=== PATIENT | female | born 1950 | race Caucasian/White ===

== ENCOUNTER 2017-06-21 22:43 | Emergency (ER) | payer OTHER ==
[2017-06-21 22:50] VITALS: PULSE 73; TEMP 97.5; BMI 22.3
--- NOTE | 2017-06-21 23:18 | PDOC ---
History of Present Illness <Tamy Lugo - Last Filed: 06/22/17 06:53> - History of Present Illness Initial Comments: 06/21/17 23:56 The patient is a 66 year old female with a history of breast ca who presents for evaluation following a syncopal episode. The patient reports that she was at a dinner constitution party this evening and had two beers throughout the night. She states that she began feeling "tingly" and sat down. She then felt very hot and "passed out". She denies any chest pain or palpitations prior to the episode and states she had a previous episode several years ago that was worked up and negative. She denies fevers, chills, SOB, chest pain, abdominal pain, or changes with urination or bowel movements. <Neftali Antony - Last Filed: 06/22/17 07:02> - General Chief Complaint: Lightheaded Stated Complaint: NEAR/SYNCOPE Time Seen by Provider: 06/21/17 23:17 Past History <Tamy Lugo - Last Filed: 06/22/17 06:53> - Past Medical History Cancer: Yes (breast 13 years ago) - Surgical History Cholecystectomy: Yes - Suicide/Smoking/Psychosocial Hx Smoking History: Never smoked <Neftali Antony - Last Filed: 06/22/17 07:02> - Past Medical History Allergies/Adverse Reactions: Allergies Allergy/AdvReac Type Severity Reaction Status Date / Time Sulfa (Sulfonamide AdvReac Verified 06/21/17 22:50 Antibiotics) Review of Systems - Review of Systems Comments:: 06/21/17 23:59 Constitutional: No fevers, chills, fatigue, malaise HEENT: No Rhinorrhea, nasal congestion, visual changes Cardiovascular: Syncope. No chest pain, palpitations, lightheadedness Respiratory: No Cough, SOB, Hemoptysis, Gastrointestinal: No Abdominal pain, Nausea, Vomiting, Constipation, Diarrhea, Melena Genitourinary: No Dysuria, Frequency, Urgency, Hesitancy, Hematuria, Flank pain Musculoskeletal: No Myalgia, arthralgia Skin: No rashes, itching, bruising, pallor Neurologic: No Headache, Dizziness, Numbness, Weakness, or Tingling <Neftali Antony - Last Filed: 06/22/17 07:02> *Physical Exam - Vital Signs Last Vital Signs Temp Pulse Resp BP Pulse Ox 97.5 F L 73 18 135/70 100 06/21/17 22:46 06/21/17 22:46 06/21/17 22:46 06/21/17 22:46 06/21/17 22:46 <Tamy Lugo - Last Filed: 06/22/17 06:53> - Vital Signs Last Vital Signs Temp Pulse Resp BP Pulse Ox 97.5 F L 73 18 135/70 100 06/21/17 22:46 06/21/17 22:46 06/21/17 22:46 06/21/17 22:46 06/21/17 22:46 - Physical Exam Comments: 06/21/17 23:59 General Appearance: Nourished. No Apparent Distress HEENT: EOMI, JORGE A. No Pharyngeal Erythema, Tonsillar Exudate, Tonsillar Erythema Neck: No Cervical Lymphadenopathy Respiratory/Chest: Lungs Clear, Normal Breath Sounds. No Crackles, Rales, Rhonchi, Wheezing Cardiovascular: Regular Rhythm, Regular Rate. No Murmur, Gallops, Rubs Gastrointestinal/Abdominal: Normal Bowel Sounds, Soft. No Guarding, Rebound, Tenderness Musculoskeletal: No CVA Tenderness Extremity: Normal Capillary Refill Integumentary: Normal Color, Dry, Warm Neurologic: commissioning engineer II-XII NML intact, Fully Oriented, Alert, Normal Mood/Affect, Normal Response, <Neftali Antony - Last Filed: 06/22/17 07:02> ED Treatment Course - LABORATORY CBC & Chemistry Diagram: 06/22/17 00:25 06/22/17 00:25 - ADDITIONAL ORDERS Additional order review: Laboratory Results 06/22/17 06/22/17 00:25 00:25 Sodium 140 Potassium 3.9 Chloride 104 Carbon Dioxide 27 Anion Gap 9 BUN 26 H Creatinine 0.9 Creat Clearance w eGFR > 60 Random Glucose 149 H Calcium 8.5 Total Bilirubin 0.3 AST 16 ALT 25 Alkaline Phosphatase 107 Creatine Kinase 49 Troponin I < 0.02 Total Protein 6.5 Albumin 3.8 Alcohol, Quantitative < 5.0 06/22/17 00:25 RBC 5.31 H MCV 61.8 L MCHC 31.8 L RDW 15.8 H MPV 8.6 Neutrophils % 76.2 Lymphocytes % 17.7 Monocytes % 4.5 Eosinophils % 0.9 Basophils % 0.7 - Medications Given in the ED: ED Medications Discontinued Medications Generic Name Dose Route Start Last Admin Trade Name Lino PRN Reason Stop Dose Admin Sodium Chloride 500 mls @ 500 mls/hr 06/21/17 23:51 06/22/17 00:28 Normal Saline - IV 06/22/17 00:50 500 mls/hr ASDIR STA Administration <Tamy Lugo - Last Filed: 06/22/17 06:53> - LABORATORY CBC & Chemistry Diagram: 06/22/17 00:25 06/22/17 00:25 <Neftali Antony - Last Filed: 06/22/17 07:02> Medical Decision Making - Medical Decision Making 06/22/17 00:02 The patient is a 66 year old female with a history of breast ca who presents for evaluation following a syncopal episode. Differential includes but is not limited to: Vaso-vagal, acs, arrhythmia, intoxication, metabolic derangement. Given the patient's normal clinical exam and resolution of symptoms here in the ED as well as her history, it is likely her syncopal episode was due to a vaso- vagal episode. However given her age, we will obtain a ekg, cbc, cmp, and troponin to evaluate for any arrhythmia or acs. We will continue to monitor and reassess. 06/22/17 01:51 cbc, cmp are unremarkable. Initial troponin is negative. EKG demonstrates q waves in leads v1-v3 and a shortened KS interval. Prior EKG is unavailable. Given her history of syncope and ekg changes, we will initiate ED observation for a second troponin. We discussed the the hospitalist team who took sign out. 06/22/17 06:54 Patient's second troponin is negative and chest plain film is unremarkable as preliminarily read by the ED physician as negative pending official read. We are comfortable discharging the patient home at this time with PCP follow up. We discussed the results and the plan with the patient and she voiced understanding and is agreeable with the plan. <Neftali Antony - Last Filed: 06/22/17 07:02> *DC/Admit/Observation/Transfer - Discharge Dispostion Admit: No <Tamy Lugo - Last Filed: 06/22/17 06:53> - Discharge Dispostion Admit: No <Neftali Antony - Last Filed: 06/22/17 07:02> Diagnosis at time of Disposition: Near syncope Syncope Qualifiers: Syncope type: unspecified Qualified Code(s): R55 - Syncope and collapse - Discharge Dispostion Disposition: HOME Condition at time of disposition: Improved - Referrals
[2017-06-21] MEDS ORDERED: SODIUM CHLORIDE 500 ML IV STA (23:51)
[2017-06-22 00:31] LABS: BASOPHIL 0.7 % (0-2.0); EOSINOPHIL 0.9 % (0-4.5); MCHC 31.8 g/dl (32.0-36.0); MEAN CELL VOLUME 61.8 fl (80-96); MEAN PLT VOLUME 8.6 fl (7.5-11.1); NEUTROPHILS 76.2 % (42.8-82.8); PLATELET COUNT 196 K/MM3 (134-434); RDW 15.8 % (11.6-15.6)
[2017-06-22 00:32] LABS: MCH 19.7 pg (25.7-33.7)
[2017-06-22 00:54] LABS: ALBUMIN 3.8 g/dl (3.4-5.0); ANION GAP 9 (8-16); BILIRUBIN,TOTAL 0.3 mg/dL (0.2-1.0); CALCIUM 8.5 mg/dL (8.5-10.1); CO2 27 mmol/L (21-32); CREATININE 0.9 mg/dL (0.55-1.02); GLUCOSE,RANDOM 149 mg/dL (74-106); SGOT/AST 16 U/L (15-37); SGPT/ALT 25 U/L (12-78); TOT PROT 6.5 g/dl (6.4-8.2)
[2017-06-22 00:57] LABS: ALK PHOS 107 U/L (45-117); CPK 49 IU/L (26-192); TROPONIN I < 0.02 ng/ml (0.00-0.05)
--- NOTE | 2017-06-22 01:09 | PDOC ---
Attending Attestation - Resident Resident Name: Neftali Antony - HPI HPI: 06/22/17 01:08 Pt comes with a syncopal episode at a [employer] that she was attending. Pt had 2 small alcoholic drinks and her alcohol level is zero in the ER. Pt lives in [facility] and she has never been ion out ER> In the ER, EKG shows short WA interval and septal anterior Q waves which may be relatively new. - Physicial Exam PE: 06/22/17 03:54 Pt has normal exam. I agree with the resident exam. Neuro exam is normal. - Medical Decision Making 06/22/17 03:55 Pt will have serial cardiac enzymes. If 2 enzymes are normal pt will be discharged home. EKG demonstrates Q waves. Pt 's CXR is pending Alcohol level is zero.
[2017-06-22 01:33] LABS: ANISOCYTOSIS 2+; HYPOCHROMIA 3+; MICROCYTOSIS 2+; PLATELET ESTIMATE ADEQUATE (NORMAL)
[2017-06-22 06:51] LABS: CPK 44 IU/L (26-192); TROPONIN I < 0.02 ng/ml (0.00-0.05)
[2017-06-22 07:03] VITALS: BP 140/60
--- NOTE | 2017-06-22 13:03 | EKG ---
Test Reason : Blood Pressure : / mmHG Vent. Rate : 086 BPM Atrial Rate : 089 BPM P-R Int : 108 ms QRS Dur : 080 ms QT Int : 388 ms P-R-T Axes : 042 038 055 degrees QTc Int : 464 ms SINUS RHYTHM WITH SINUS ARRHYTHMIA WITH SHORT MN POOR R WAVE PROGRESSION ABNORMAL ECG NO PREVIOUS ECGS AVAILABLE BASELINE ARTIFACT Confirmed by COURTNEY LAURA MD ([id number]) on 06/22/2017 1:03:28 PM Referred By: Confirmed By:COURTNEY LAURA MD
== END 2017-06-22 07:07 | disposition home or self-care (01) ==
LOC: JER 22:43 → JERBED 06-22 01:49 → UNDOADMOB 06-22 01:49 → JERBED 06-22 01:54 → JER 06-22 07:07
PROC: 3E0337Z Introduction of Electrolytic and Water Balance Substance into Peripheral Vein, Percutaneous Approach (ICD-10-PCS; principal; 2017-06-21)
DX: R55 Syncope and collapse (principal); Z85.3 Personal history of malignant neoplasm of breast; Z90.49 Acquired absence of other specified parts of digestive tract
CPT/HCPCS: 36415; 71020-TC; 80053; 80307; 82550; 84484; 85025; 93005; 93010; 99282-25